=== PATIENT | female | born 1965 | race Hispanic/Latino ===

== ENCOUNTER 2017-01-28 02:55 | Emergency (ER) | payer OTHER ==
[~2017-01-28] VITALS: Ht 160 cm; Wt 62.3 kg
[2017-01-28 03:17] VITALS: BP 147/78; PULSE 77; RESP 16; O2SAT 99
[2017-01-28 03:31] LABS: BASOPHILS % (AUTO) 0.5 % (0-3); EOSINOPHILS % (AUTO) 1.9 % (0-5); MONOCYTES % (AUTO) 7.1 % (4-12); Mean Corpuscular Hemoglobin 29.8 pg (27.0-35.0); Mean Corpuscular Volume 89.8 fL (81-100); NEUTROPHILS % (AUTO) 36.3 % (40-74); Platelet Count 278 bil/L (150-400)
[2017-01-28 03:50] LABS: TROPONIN T 0.01 ug/L (0.0-0.011)
[2017-01-28 04:01] LABS: Magnesium 2.2 mg/dL (1.6-2.6)
--- NOTE | 2017-01-28 05:24 | ED.REPORT ---
HPI-Chest Pain 40 and Over Date of Service January 28, 2017 ED Provider: Allen Monae MD A 51 year old female with a history of anxiety and a heart murmur presents to the ED with left-sided chest pain onset yesterday, worsening at 0200 this morning. The pain is not exacerbated with exertion. Associated symptoms include bilateral flank pain, diaphoresis, and chills. The patient denies other symptoms. She has never had similar symptoms in the past. The patient's pain has resolved in the ED. Nursing Notes Stated Complaint: CHEST PAIN Chief Complaint: Chest Pain Nursing Notes Reviewed: Yes Allergies: Coded Allergies: No Known Allergies (Unverified Allergy, Unknown, 08/03/15) Uncoded Allergies: No Known Allergies (Allergy, Unknown, 04/17/05) General Time Seen by MD: 04:22 Chief Complaint Chest pain Hx Obtained From: Patient Arrived By: Walk-in Sudden in Onset?: No Onset Occurred: Yesterday Symptom Duration: Since onset Location: : Chest left Quality: Painful Severity: Current: Moderate Severity: Maximum: Moderate Pertinent Negative: Relieved by nothing Context Related History: Reports: Anxiety disorder Recent Healthcare: No recent doctor visit Similar Sx Previous: No Past Medical History Past Medical History Heart murmur Anxiety Past Surgical History Denies Smoking History Unknown if Ever Smoker Social History Other Social History: Good social support Ambulatory Status Independent Review of Systems Constitutional: Reports: Chills, Denies: Fever Respiratory: Denies: Non-productive cough, Shortness of breath Cardiovascular: Reports: Chest pain (Left-sided) GI: Denies: Diarrhea, Vomiting Skin: Reports Diaphoresis Complete sys rev & neg: except as marked. Female: Reports: Flank pain (Bilateral) Physical Exam Initial Vital Signs Vital Signs (First) Date Time Temp Pulse Resp B/P Pulse Ox O2 Delivery O2 Flow Rate FiO2 01/28/17 03:17 36.3 77 16 147/78 99 Room Air Initial VS: Reviewed, Vital signs normal Head / Eyes: Atraumatic, Normocephalic ENT: Conjunctiva normal, No scleral icterus Neck: Supple, Full range of motion Skin: Warm, Dry Neurologic: Alert, Oriented, Nonfocal Psychiatric: Mood/affect normal, Behavior normal, Normal thought content General/Constitutional: Awake, Alert, No acute distress Respiratory / Chest: Breath sounds NL, Breath sounds = bilat, No respiratory distress Cardiovascular: Heart rate NL, Regular rhythm Heart Sounds / Murmur: Positive: Systolic murmur present.. (II/, quiet, ejection) Abdomen: Soft, Non-tender Interpretation & Diagnostics Lab Results Interpretation Result Diagram: 01/28/17 0320 01/28/17 0320 Test 01/28/17 03:20 01/28/17 05:45 White Blood Count 5.8th/mm3 (3.8-10.1) Red Blood Count 4.53mil/mm3 (3.90-5.20) Hemoglobin 13.5g/dL (12.0-15.6) Hematocrit 40.7% (35.0-46.0) Mean Corpuscular Volume 89.8fL (81-100) Mean Corpuscular Hemoglobin 29.8pg (27.0-35.0) Mean Corpuscular Hemoglobin Concent 33.2% (32.0-37.0) Red Cell Distribution Width 13.1% (12.3-15.4) Platelet Count 278bil/L (150-400) Neutrophils (%) (Auto) 36.3% (40-74) Lymphocytes (%) (Auto) 54.2% (14-46) Monocytes (%) (Auto) 7.1% (4-12) Eosinophils (%) (Auto) 1.9% (0-5) Basophils (%) (Auto) 0.5% (0-3) Sodium Level 140mEq/L (134-144) Potassium Level 3.6mEq/L (3.5-5.2) Chloride Level 100mEq/L (97-108) Carbon Dioxide Level 24mmol/L (18-29) Blood Urea Nitrogen 14mg/dL (6-24) Creatinine 0.71mg/dL (0.57-1.00) Estimat Glomerular Filtration Rate 125mL/min (>59) Glucose Level 118mg/dL (60-99) Calcium Level 9.9mg/dL (8.5-10.1) Magnesium Level 2.2mg/dL (1.6-2.6) Total Bilirubin 0.5mg/dL (0.0-1.2) Aspartate Amino Transf (AST/SGOT) 20U/L (0-50) Alanine Aminotransferase (ALT/SGPT) 13U/L (0-32) Alkaline Phosphatase 91U/L (25-150) Total Protein 7.9g/dL (6.4-8.4) Albumin 4.6g/dL (3.4-5.0) Hold Riddle Top Tube Received (Received) Hold Urine Received (Received) Troponin T 0.010ug/L (0.0-0.011) Lab values outside NL range: no clinical significance. Lab Results Interpretation: Troponin negative 2, EKG negative 2. ECG Interpretation ECG Interpretation: Pacemaker spikes or artifacts Sinus rhythm rate 67 Ventricular premature complex Probable left atrial enlargement Time: 03:10 Interpreted by: ED physician ECG Interpretation: Sinus rhythm rate 58 Probable left atrial enlargement Time: 05:57 Interpreted by: ED physician X-Ray Chest Interpretation Chest Xray Interpretation: Normal x-ray View: Portable, 1 view Interpretation / Wet Read by: Wet read ED physician Re-Eval/Medical Decision Med Decision/Clinical Course 51-year-old female who presents with intermittent chest pain throughout the day. She has not been short of breath. There is no association between exercise or stress and the pain. Workup here in the emergency room was negative to include troponin 2, EKG 2, chest x-ray and other laboratories. She is being discharged home. She has an upcoming appointment with her doctor to talk about a cardiology referral because of her new onset murmur. I recommended she talk to him about getting a cardiac stress test. Source of Hx: Old records Time of Eval: 06:23 Re-Evaluation/Progress Note: Discussed with patient x-ray and lab results, diagnosis, and plan for discharge. Follow-up and return to the ER instructions given. Patient agrees with plan for care and all questions were addressed. Counseled Regarding: Diagnosis, Lab results, Need for follow-up, When/why to return to ED Discharge & Departure Shift Change Sign-Out Imaging Studies: Imaging discussed Primary Impression: Chest pain with low risk for cardiac etiology Disposition: Home Discharge Condition All VS Reviewed: Yes Condition: Improved Patient Instructions: Chest Pain (ED) Additional Instructions: Your EKG, x-ray, and lab results were reassuring for any serious illness today. Keep your doctor appointment this month. Talk to your doctor about getting a cardiac stress test. Return to the ER with any new or worsening symptoms. Referrals: Shar Kennedy MD (PCP) Scribe Attestation Portions of this note were transcribed by Anne Cooley. I, Dr. Monae, personally performed the history, physical exam, and medical decision-making; I reviewed and confirmed the accuracy of the information in the transcribed note. Signed by: Cyrus Will, 01/28/2017, 06:30 copies to: Shar Kennedy MD, Howard L MD January 28, 2017 05:24 ANNE COOLEY January 28, 2017 05:53
[2017-01-28 05:27] VITALS: BP 116/68; PULSE 82; RESP 21; O2SAT 99
[2017-01-28 06:43] VITALS: BP 120/70; PULSE 80; RESP 20; O2SAT 100
--- NOTE | 2017-01-28 08:24 | DRSVH ---
PROCEDURE: X-RAY CHEST ONE VIEW, PORTABLE ([id number]) INDICATIONS: CHEST PAIN TECHNIQUE: One view of the chest was acquired. COMPARISON: [facility], CR, CHEST 2VW, 11/28/2013, 17:29. FINDINGS: Surgical changes and devices: None. Lungs and pleura: No pleural effusions or pneumothorax. Lungs are clear. Mild scattered scarring/at electasis Mediastinum: Mediastinal contours appear normal. Heart size is normal. Bones and chest wall: No suspicious bony lesions. Overlying soft tissues appear unremarkable. IMPRESSION: No acute disease Dictated by: Jose M Rivas M.D. on 01/28/2017 at 8:21 Approved by: Jose M Rivas M.D. on 01/28/2017 at 8:22
== END 2017-01-28 06:44 | disposition home or self-care (01) ==
LOC: SED 02:55
DX: R07.89 Other chest pain (principal); F41.9 Anxiety disorder, unspecified; R01.1 Cardiac murmur, unspecified